=== PATIENT | female | born 2000 | race American Indian/Alaskan Native ===

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

== ENCOUNTER 2021-05-07 00:12 | Emergency (ER) | payer OTHER, MEDICAID, SELFPAY ==
[2021-05-07 00:22] VITALS: BP 139/72; PULSE 92; RESP 18; TEMP 36.7; O2SAT 97; BMI 43.8
[2021-05-07 00:42] LABS: COVID19 -Nasal RAPID Negative (Negative)
--- NOTE | 2021-05-07 01:33 | DI.RAD.S_ITS ---
PROCEDURE: XR ACUTE ABDOMEN SERIES INDICATIONS: abdominal pain TECHNIQUE: One view chest and two views of the abdomen were acquired. COMPARISON: None. FINDINGS: Surgical changes and devices: None. Chest: Lungs are clear. Heart size is normal. No pleural effusions. No pneumoperitoneum. Abdomen: Bowel gas pattern is normal. No suspicious calcifications. Visualized solid organ contours appear normal. Bones: No suspicious bony lesions. IMPRESSION: No acute disease. Dictated by: Srinivasan Granado M.D. on 05/07/2021 at 1:55 Approved by: Srinivasan Granado M.D. on 05/07/2021 at 1:55
--- NOTE | 2021-05-07 01:33 | ED.ABDPAIN ---
HPI - Abdominal Pain General Chief Complaint: Upper Respiratory Symptoms Stated Complaint: sore throat/headach/cramps x3 days Time Seen by Provider: 05/07/21 00:51 Source: patient Mode of arrival: Ambulatory Limitations: no limitations History of Present Illness HPI narrative: 21-year-old female smoker with noncontributory medical history presents with multiple symptoms over the past few days. She has had nasal congestion and sore throat but denies any significant pain with swallowing over the past few days. She denies any fever or chills. She has had no chest pain or shortness of breath. She has had no cough or hemoptysis. Additionally over the past few days she complains of some generalized abdominal discomfort that seems to be worse when she is upright and improves with rest. She denies any nausea or vomiting nor any change in bowel habits such as constipation or diarrhea. She has no dysuria, frequency or urgency. Related Data Previous Rx's Medication Instructions Recorded hyoscyamine sulfate 0.125 mg tablet 0.125 mg PO BID-QID PRN #20 tab 05/07/21 Allergies Allergy/AdvReac Type Severity Reaction Status Date / Time No Known Drug Allergies Allergy Verified 05/07/21 00:27 Review of Systems Review of Systems Narrative: GENERAL: See HPI HEENT: See HPI RESPIRATORY: Denies dyspnea, cough, wheezing, hemoptysis, sputum. CARDIOVASCULAR: Denies chest pain, palpitations, orthopnea, edema, GASTROINTESTINAL: D see HPI : See HPI MUSCULOSKELETAL: denies weakness, joint pain, or bony pain SKIN: Denies rash, skin lesions, or other NEUROLOGIC: Denies weakness, headache, numbness, change in speech, confusion, seizures, incoordination. PSYCHIATRIC: No concerning psychosocial issues. 12 point review of systems is negative except for those stated above Patient History Social History Smoking Status: Current every day smoker Smoking Status: Current every day smoker alcohol intake frequency: 0-2 drinks per day Substance Use Type: does not use Exam Narrative Exam Narrative: GENERAL: [21 year old patient appears stated age. Well-developed patient, in mild distress. HEAD: Atraumatic. Normocephalic. EYES: Pupils equal round and reactive. Extraocular motions intact. No scleral icterus. No injection or drainage. ENT: Nose without bleeding, purulent drainage. Throat without erythema, tonsillar hypertrophy or exudate. Airway patent. Clear postnasal drip NECK: Trachea midline. Non tender CARDIOVASCULAR: Regular rate and rhythm without murmurs, gallops, or rubs. RESPIRATORY: Clear to auscultation. Breath sounds equal bilaterally. No wheezes, rales, or rhonchi. GASTROINTESTINAL: Abdomen soft, soft but tender in the left lower quadrant, no rebound or guarding, bowel sounds present in all 4 quadrants EXTREMITIES: No edema or joint tenderness. BACK: Nontender without deformity or crepitance. No flank tenderness. NEURO: AOx3. SKIN: No rash or erythema of visible areas Initial Vital Signs Initial Vital Signs: Vital Signs Temperature 98.0 F 05/07/21 00:22 Pulse Rate 92 H 05/07/21 00:22 Respiratory Rate 18 05/07/21 00:22 Blood Pressure 139/72 05/07/21 00:22 Pulse Oximetry 97 05/07/21 00:22 Course Orders Ordered: Discontinued Medications Hydrocodone Bitart/Acetaminophen (Hydrocodone/Acet 5/325 Prepack) 1 bottle MISC SEEINSTR ONE Stop: 05/07/21 03:29 Last Admin: 05/07/21 04:11 Dose: 1 bottle Documented by: JAVAN Ondansetron HCl (Ondansetron 4 Mg Odt Prepack) 1 bottle MISC SEEINSTR ONE Stop: 05/07/21 03:29 Last Admin: 05/07/21 04:11 Dose: Not Given Documented by: JAVAN Vital Signs Vital signs: Vital Signs - 8 hr 05/07/21 00:22 Temperature 98.0 F Pulse Rate 92 H Respiratory Rate 18 Blood Pressure 139/72 Pulse Oximetry 97 MDM - Abdominal Pain Lab Data Labs: Lab Results 05/07/21 Range/Units 00:18 SARS-CoV-2 (PCR) Negative (Negative) Point of care testing: Point of Care Testing Rapid Strep A Negative Urine Dip Bedside Urine Glucose Negative Bedside Urine Bilirubin - Negative Bedside Urine Ketone - Negative Urine Specific [place] 1.030 Bedside Urine Occult Blood - Negative Bedside Urine pH 6.0 Bedside Urine Protein - Negative Bedside Urine Urobilinogen - Negative Bedside Urine Nitrite - Negative Bedside Urine Leukocytes - Negative Esterase Discharge Plan Departure Patient Disposition: Home Clinical Impression: Pharyngitis Qualifiers: Pharyngitis/tonsillitis etiology: unspecified etiology Qualified Code(s): J02.9 - Acute pharyngitis, unspecified Abdominal pain Qualifiers: Abdominal location: unspecified location Qualified Code(s): R10.9 - Unspecified abdominal pain Instructions: Acute Abdominal Pain Activity Restrictions/Additional Instructions: *You have been diagnosed with [sore throat, headache and generalized abdominal pain with very reassuring physical exam, labs and imaging. *What to do: *Please continue to take your regular medications as directed. [ x] New medication prescriptions sent to your pharmacy: [[facility] in [place] ] [ ] New medication written as a paper prescription [ ] No new medications given *Please follow up with your primary care provider in 2-3 days, call for an appointment. Let them know you were seen in the Emergency Department and that we ask that you be seen in follow up. We will electronically transmit a record of today's note if your PCP is in our system * as we discussed, please consider a clear liquid diet for the next 24-48 hours *If you do not have a primary care provider please contact the [facility] Resource line at [phone]. They will ask some questions about your medical history and help get you set up with a doctor in the community. *Return to Emergency Department if you should have any new, worsening or concerning symptoms, such as [fever greater than 101 F, shaking chills, worsening pain, persistent vomiting or other bothersome symptoms] Prescriptions: New hyoscyamine sulfate 0.125 mg tablet 0.125 mg PO BID-QID PRN (Reason: dyspepsia) Qty: 20 RF: 0 Stand Alone Forms: Work Release Note
[2021-05-07 03:42] VITALS: BP 142/79; PULSE 83; RESP 20; O2SAT 99
[2021-05-07] MEDS: HYDROCODONE/ACET 5/325 PREPACK 1 BOTTLE MISC (04:11)
== END 2021-05-07 04:19 | disposition home or self-care (01) ==
PROVIDERS: Emergency Provider Emergency Medicine
DX: J02.9 Acute pharyngitis, unspecified (principal); R10.9 Unspecified abdominal pain; Z20.822 Contact with and (suspected) exposure to COVID-19
CPT/HCPCS: 74022; 81003; 87070; 87635; 87880; 99282; 99283; C9803